=== PATIENT | female | born 1990 | race Caucasian/White ===

== ENCOUNTER → 2024-06-13 14:15 | Outpatient (CLI) | payer OTHER, SELFPAY ==
--- NOTE | 2024-06-13 14:16 | DI.US.S_ITS ---
PROCEDURE: US PELVIC COMPLETE INDICATIONS: infertility; evaluate pelvic anatomy TECHNIQUE: Real-time scanning was performed of the pelvic organs, with image documentation. Additional endovaginal scanning was necessary due to incomplete visualization of the adnexal and endometrial structures by transabdominal scanning. COMPARISON: None. FINDINGS: Uterus: Uterus is anteverted and normal in size at 6.0 x 6.4 x 4.2 cm. The myometrium is homogeneous. The endometrium measures 14 mm in combined thickness. Ovaries: The right ovary measures 3.3 x 2.7 x 1.8 cm, with a calculated ovarian volume of 8.4 cc. The left ovary measures 3.2 x 2.2 x 1.5 cm, with a calculated ovarian volume of 5.5 cc. The ovaries have a normal sonographic appearance. Less than 12 follicles can be seen in each ovary. Within the left ovary, there is a 1.4 x 1.3 x 1.0 cm hypoechoic structure with thick oliveira and mild peripheral vascularity, likely representing a corpus luteal cyst Other: No pathologic free abdominal or pelvic fluid. IMPRESSION: Left ovarian 1.4 cm corpus luteal cyst. Otherwise, no acute sonographic abnormality of the uterus or ovaries. We strive to produce accurate, complete, and clear reports of imaging services. To assist us in improving patient care, this report was composed using standard report templates and voice recognition software. Therefore, it may contain abnormal punctuation, insertions and/or omissions. Occasional wrong-word or sound-alike substitutions may occur. Though we review the report and make efforts to correct it, we do recommend that the report be read carefully in proper context to recognize any text inaccuracies. Dictated by: Elias Shaw M.D. on 06/16/2024 at 14:49 Approved by: Elias Shaw M.D. on 06/16/2024 at 14:53
== END ==
PROVIDERS: PCP Family Medicine; Referring Provider Student in an Organized Health Care Education/Training Program; Visit Provider Student in an Organized Health Care Education/Training Program
DX: N97.9 Female infertility, unspecified (principal); N83.12 Corpus luteum cyst of left ovary
CPT/HCPCS: 76830; 76856

== ENCOUNTER → 2024-06-17 10:09 | Outpatient (CLI) | payer OTHER, SELFPAY ==
[2024-06-17 11:26] LABS: Follicle Stimulating Hormone 3.45 mIU/mL; Prolactin 12.8 ng/mL (3.0-18.6)
[2024-06-17 11:36] LABS: TSH w/ Reflex to FT4 0.88 uIU/mL (0.47-4.68)
[2024-06-17 11:42] LABS: Estradiol, Total 37.1 pg/mL; Testosterone 32.6 ng/dL (5.71-77.0)
== END ==
PROVIDERS: PCP Family Medicine; Referring Provider Student in an Organized Health Care Education/Training Program; Visit Provider Student in an Organized Health Care Education/Training Program
DX: N97.9 Female infertility, unspecified (principal)
CPT/HCPCS: 36415; 82397; 82670; 83001; 84146; 84403; 84443

== ENCOUNTER → 2024-07-05 12:11 | Outpatient (CLI) | payer OTHER, SELFPAY ==
[2024-07-05 18:34] LABS: Progesterone, Total 0.78 ng/mL
== END ==
PROVIDERS: PCP Family Medicine; Referring Provider Student in an Organized Health Care Education/Training Program; Visit Provider Student in an Organized Health Care Education/Training Program
DX: N97.9 Female infertility, unspecified (principal)
CPT/HCPCS: 36415; 84144

== ENCOUNTER → 2024-08-19 09:40 | Outpatient (CLI) | payer OTHER, SELFPAY | LOC: LAB 09:41 | PROVIDERS: PCP Family Medicine; Referring Provider Student in an Organized Health Care Education/Training Program; Visit Provider Student in an Organized Health Care Education/Training Program | DX: N97.9 Female infertility, unspecified (principal) | CPT/HCPCS: 36415; 84144 ==